=== PATIENT | female | born 1995 | race Caucasian/White ===

== ENCOUNTER → 2022-06-15 16:39 | Outpatient (BNVA) | payer MEDICAID, SELFPAY | PROVIDERS: Family Provider Obstetrics & Gynecology; PCP Obstetrics & Gynecology; Visit Provider Nurse Practitioner Family | DX: E66.01 Morbid (severe) obesity due to excess calories (principal); Z68.43 Body mass index [BMI] 50.0-59.9, adult; F41.9 Anxiety disorder, unspecified; K21.9 Gastro-esophageal reflux disease without esophagitis; E66.9 Obesity, unspecified; R73.9 Hyperglycemia, unspecified; N92.6 Irregular menstruation, unspecified; G47.00 Insomnia, unspecified; Z72.51 High risk heterosexual behavior; Z76.89 Persons encountering health services in other specified circumstances | CPT/HCPCS: 80053; 80061; 83036; 84443; 87806 ==

== ENCOUNTER → 2023-03-10 16:24 | Outpatient (BNVA) | payer MEDICARE, MEDICAID, SELFPAY | PROVIDERS: PCP Nurse Practitioner Family; Visit Provider Nurse Practitioner Family | DX: F41.9 Anxiety disorder, unspecified (principal); F32.A Depression, unspecified; K21.9 Gastro-esophageal reflux disease without esophagitis; E66.01 Morbid (severe) obesity due to excess calories; Z68.43 Body mass index [BMI] 50.0-59.9, adult | CPT/HCPCS: 80053; 80061; 84443 ==

== ENCOUNTER 2023-03-20 16:12 | Emergency (ER) | payer MEDICARE, MEDICAID, SELFPAY ==
[2023-03-20 16:22] VITALS: BP 159/80; PULSE 77; RESP 15; TEMP 36.5; O2SAT 97; BMI 53.2
[2023-03-20 18:13] LABS: Basophils # 0.1 10^3/uL (0.0-0.1); Basophils % 0.8 %; Eosinophils # 0.2 10^3/uL (0.0-0.8); Eosinophils % 1.9 %; Hematocrit 43.6 % (37.0-47.0); Hemoglobin 13.5 g/dL (11.5-15.3); Lymphocytes # 2.3 10^3/uL (0.8-4.8); Lymphocytes % 20.9 %; Mean Corpuscular Hemoglobin 27.2 pg (28.0-34.0); Mean Corpuscular Volume 87.7 fl (81-99); Mean Platelet Volume 9.6 fL (7.4-10.4); Monocytes # 0.5 10^3/uL (0.2-0.9); Monocytes % 4.2 %; Neutrophils # 7.96 10^3/uL (1.8-7.7); Nucleated Red Blood Cells % 0 %; Platelet Count 352 10^3/cmm (130-400); Red Blood Count 4.97 10^6/uL (4.1-5.3); Red Cell Distribution Width 13.6 % (12.1-15.1); White Blood Count 11.1 10^3/uL (4.0-10.0)
--- NOTE | 2023-03-20 18:19 | USR_ITS ---
PROCEDURE INFORMATION: Exam: US Abdomen, Limited; Right Upper Quadrant Exam date and time: 03/20/2023 6:43 PM Age: 28 years old Clinical indication: Nausea and vomiting; Abdominal pain; Acute; Additional info: Ruq pain, vomiting TECHNIQUE: Imaging protocol: Real time ultrasound of the abdomen with image documentation. Limited exam focused on the right upper quadrant. COMPARISON: US OB BPP wo NST [id number] 03/17/2019 4:41 PM FINDINGS: Liver: Normal. No masses. Liver measures 16.3 cm. Portal venous flow appears unremarkable. Gallbladder: Echogenic shadowing stone of 1.7 cm appears lodged within the neck of the gallbladder. A component of echogenic sludge is also seen. Gallbladder wall measures 2.6 mm. No pericholecystic fluid or edema. Biliary ducts: Common bile duct measures 8.8 mm, which is mildly dilated. No intrahepatic ductal dilatation. No echogenic shadowing stone is seen within the visualized common bile duct. Pancreas: Mild pancreatic fullness without focal abnormality. Correlate with serum amylase and lipase otherwise. Right kidney: Normal. No mass. No hydronephrosis. Right kidney measures 12.1 x 4.6 x 4.9 cm. US/US gall bladder [id number] IMPRESSION: 1. Echogenic shadowing gallstone of 1.7 cm appears lodged within the neck of the gallbladder, along with component of echogenic sludge within the gallbladder. No sonographic findings of significant inflammation or cholecystitis is seen. 2. Common bile duct is mildly dilated at 8.8 mm. No intrahepatic ductal dilatation. 3. Mild pancreatic fullness without focal abnormality. This may just represent variation of normal though correlate with serum amylase and lipase.
--- NOTE | 2023-03-20 18:26 | W.ED.ABDPA2 ---
HPI - Abdominal Pain General: Chief Complaint: Abdominal Pain Stated Complaint: abd pain, N/V Time Seen by Provider: 03/20/23 18:09 Source: patient History of Present Illness: 28-year-old female complaining of right upper quadrant pain for the past 3 to 4 days or so. She started vomiting today, and has vomited several times. She has not been able to hold food or liquid down today. No fever. No diarrhea. Vomiting is bilious. History of 2 C-sections. She states that she was admitted in 2019 for cholecystectomy but had a family emergency and had to leave. Evidently, no follow-up since. MD elicited complaint: abdominal pain Pertinent past history: other Onset (ago): day(s) Pain Consistency: constant Location: RUQ Severity: severe Quality: cramping and stabbing Radiation: RUQ Migration to: no migration Exacerbating factors: eating and vomiting Relieving factors: nothing Associated Symptoms: Reports poor appetite and vomiting; Denies coffee ground emesis, fever(s), hematochezia, hematemesis, loose stools and melena Review of Systems Const: Denies: fever(s) ENMT: Denies: throat pain Card: Denies: chest pain or palpitations Resp: Denies: dyspnea, productive cough or non-productive cough GI: Reports: vomiting; Denies: hematemesis, coffee ground emesis, hematochezia or melena : Denies: flank pain or difficulty voiding PFSH ED PFSH: Social History Smoking and tobacco status: current every day smoker Physical Exam Const: COMMON NORMALS: no acute distress GENERAL APPEARANCE: cooperative; not ill appearing and not frail appearing HENMT: COMMON NORMALS: normocephalic, atraumatic and Normal external nose present HEAD & SCALP: normocephalic and atraumatic FACE & SINUS: normal facial exam and face symmetric NOSE: Normal external nose present Eye: COMMON NORMALS: Equal, round and reactive pupils present and EOMs intact bilaterally PUPIL: Yes Equal, round and reactive pupils present Neck/C-Spine: GENERAL: Yes trachea midline Chest: CHEST: Yes Symmetrical chest wall rise Resp: COMMON NORMALS: normal respiratory effort, No retractions, No use of accessory muscles and clear to auscultation bilaterally AUSCULTATION: clear to auscultation bilaterally Cardio: COMMON NORMALS: regular rate and regular rhythm RATE: regular rate RHYTHM: regular rhythm GI: COMMON NORMALS: Normal to inspection, nondistended, normoactive bowel sounds present PALPATION: Yes Tenderness to palpation present (GI) Details: RUQ and Yes Guarding due to palpation present (GI) Extremity: COMMON NORMALS: no pedal edema Neuro: TEGAN COMA SCALE: document GCS findings [place] coma scale eye opening: Spontaneous [place] coma scale verbal response: Orientated [place] coma scale motor response: Obey commands [place] coma scale total score: 15 SENSORY EXAM: Yes extremities (intact) Psych: COMMON NORMALS: speech normal SPEECH: Yes normal speech Skin: COMMON NORMALS: no rashes or lesions noted GENERAL SKIN EXAM: no rashes or lesions noted Course Vital Signs: Vital signs: Vital Signs Temperature 97.7 F 03/20/23 16:22 Pulse Rate 77 03/20/23 16:22 Respiratory Rate 16 03/20/23 20:59 Blood Pressure 110/62 03/20/23 21:30 Pulse Oximetry 100 03/20/23 20:59 Oxygen Delivery Me thod Room Air 03/20/23 20:00 MDM - Abdominal Pain Medical Decision Making Pain relieved with Dilaudid and Toradol. She is afebrile. No vomiting here. White blood cell count is 11. Liver enzymes are completely normal. Her bilirubin is 0.2. Gallbladder ultrasound shows 1.7 cm gallstone in the neck of the gallbladder. There is no significant wall thickening or inflammation or pericholecystic fluid. She has chronic common bile duct dilatation that is mild. No hepatic ductal dilatation. Her lipase is normal. Spoke with surgery. Surgery schedule is quite full for the morning. As she does not have cholecystitis or ascending cholangitis, she will be allowed discharge home on pain medication, antiemetics, and liquid diet. Surgery follow-up this week. Return for worsening symptoms. Lab Data 03/20/23 18:03 03/20/23 18:03 Labs/Radiology: Radiology Impressions Gallbladder Ultrasound 03/20/23 18:19 IMPRESSION: 1. Echogenic shadowing gallstone of 1.7 cm appears lodged within the neck of the gallbladder, along with component of echogenic sludge within the gallbladder. No sonographic findings of significant inflammation or cholecystitis is seen. 2. Common bile duct is mildly dilated at 8.8 mm. No intrahepatic ductal dilatation. 3. Mild pancreatic fullness without focal abnormality. This may just represent variation of normal though correlate with serum amylase and lipase. Laboratory Results WBC 11.1 10^3/uL (4.0-10.0) H 03/20/23 18:03 RBC 4.97 10^6/uL (4.1-5.3) 03/20/23 18:03 Hgb 13.5 g/dL (11.5-15.3) 03/20/23 18:03 Hct 43.6 % (37.0-47.0) 03/20/23 18: MCV 87.7 fl (81-99) 03/20/23 18: MCH 27.2 pg (28.0-34.0) L 03/20/23 18: MCHC 31.0 g/dL (30.0-36.0) 03/20/23 18: RDW 13.6 % (12.1-15.1) 03/20/23 18:03 Plt Count 352 10^3/cmm (130-400) 03/20/23 18:03 MPV 9.6 fL (7.4-10.4) 03/20/23 18:03 Neut % (Auto) 72.0 % 03/20/23 18:03 Lymph % (Auto) 20.9 % 03/20/23 18:03 [place] % (Auto) 4.2 % 03/20/23 18:03 Eos % (Auto) 1.9 % 03/20/23 18:03 Baso % (Auto) 0.8 % 03/20/23 18:03 Neut # (Auto) 7.96 10^3/uL (1.8-7.7) H 03/20/23 18:03 Lymph # (Auto) 2.3 10^3/uL (0.8-4.8) 03/20/23 18:03 [place] # (Auto) 0.5 10^3/uL (0.2-0.9) 03/20/23 18:03 Eos # (Auto) 0.2 10^3/uL (0.0-0.8) 03/20/23 18:03 Baso # (Auto) 0.1 10^3/uL (0.0-0.1) 03/20/23 18:03 Nucleated RBC % (auto) 0 % 03/20/23 18:03 Nucleated RBCs # 0.0 /100WBC 03/20/23 18:03 Sodium 136 mmol/L (136-145) 03/20/23 18:03 Potassium 3.8 mmol/L (3.5-5.1) 03/20/23 18:03 Chloride 103 mmol/L (98-107) 03/20/23 18:03 Carbon Dioxide 28 mmol/L (22-29) 03/20/23 18:03 Anion Gap 8.8 (5-19) 03/20/23 18:03 BUN 12 mg/dL (6-20) 03/20/23 18:03 Creatinine 0.6 mg/dL (0.5-0.9) 03/20/23 18:03 GFR Calculation 119.0 mL/min (90-130) 03/20/23 18:03 Glucose 99 mg/dL (65-115) 03/20/23 18:03 Calculated Osmolality 282 mOsm/kg (285-295) L 03/20/23 18:03 Calcium 8.4 mg/dL (8.5-10.5) L 03/20/23 18:03 Total Bilirubin 0.2 mg/dL (0.15-1.2) 03/20/23 18:03 AST 12 U/L (0-32) 03/20/23 18:03 ALT 12 U/L (0-33) 03/20/23 18:03 Alkaline Phosphatase 82 U/L (35-105) 03/20/23 18:03 Total Protein 6.5 g/dL (6.6-8.7) L 03/20/23 18:03 Albumin 4.0 g/dL (3.5-5.2) 03/20/23 18:03 Globulin 2.5 g/dL (1.3-4.6) 03/20/23 18:03 Lipase 39 U/L (13-60) 03/20/23 18:03 HCG, Qual Negative (Negative) 03/20/23 17:29 Urine Color Yellow (Yellow) 03/20/23 19:13 Urine Appearance Hazy (CLEAR) A 03/20/23 19:13 Urine pH 7 (5-7) 03/20/23 19:13 Ur Specific [place] 1.010 (1.005-1.030) 03/20/23 19:13 Urine Protein Neg (Negative) 03/20/23 19:13 Urine Glucose (UA) Norm (Normal) 03/20/23 19:13 Urine Ketones Negative (Negative) 03/20/23 19:13 Urine Blood Neg (Negative) 03/20/23 19:13 Urine Nitrate Negative (Negative) 03/20/23 19:13 Urine Bilirubin Neg (Negative) 03/20/23 19:13 Urine Urobilinogen 1 mg/dL (Negative) H 03/20/23 19:13 Ur Leukocyte Esterase Trace (Negative) H 03/20/23 19:13 Urine RBC 0-4 /hpf (0-2) H 03/20/23 19:13 Urine WBC 0-4 /hpf (0-5) H 03/20/23 19:13 Ur Squamous Epith Cells 10-15 /hpf (0-5) H 03/20/23 19:13 Amorphous Sediment 1+ /hpf 03/20/23 19:13 Urine Bacteria 2+ /hpf (NONE) H 03/20/23 19:13 Discharge Plan Discharge Patient Disposition: Home Clinical Impression: Biliary colic Condition: Stable Prescriptions: New Percocet 7.5-325 mg tablet 1 tab PO Q6H PRN (Reason: pain) Qty: 10 0RF ondansetron 4 mg film 4 mg PO Q8H PRN (Reason: nausea and vomiting) Qty: 10 0RF No Action buspirone 10 mg tablet 10 mg PO TID 30 Days Qty: 90 1RF fluoxetine 40 mg capsule 40 mg PO DAILY 30 Days Qty: 30 3RF pantoprazole [Protonix] 40 mg tablet,delayed release (DR/EC) 40 mg PO DAILY 30 Days Qty: 30 4RF prazosin 2 mg capsule 2 mg PO DAILY 30 Days Qty: 30 3RF levocetirizine [Xyzal] 5 mg tablet 5 mg PO DAILY 90 Days Qty: 90 1RF Discharge Orders: Discharge ED (Routine); Ordered 03/20/23 Ordered By: Davon Tlaamantes Referrals: Carmelo Francois DO [Physician] - 4-7 days Teagan Sahu NP [Primary Care Provider] - Patient Instructions: Biliary Colic (ED), Abdominal Pain (ED), Opioid Safety, Pain Management Activity Restrictions/Additional Instructions: Return for fever greater than 100, vomiting liquids or medications despite treatment, worsening pain despite treatment, other concerning symptoms. Case management will call you tomorrow regarding a surgery appointment. Coding Level of Care Code ED Disbursing Officer for Holli Martínez
[2023-03-20 18:27] LABS: Alanine Aminotransferase 12 U/L (0-33); Alkaline Phosphatase 82 U/L (35-105); Anion Gap 8.8 (5-19); Aspartate Amino Transferase 12 U/L (0-32); Blood Urea Nitrogen 12 mg/dL (6-20); Calcium 8.4 mg/dL (8.5-10.5); Carbon Dioxide 28 mmol/L (22-29); Chloride 103 mmol/L (98-107); Globulin 2.5 g/dL (1.3-4.6); Glucose 99 mg/dL (65-115); Lipase 39 U/L (13-60); Osmolality Calculated 282 mOsm/kg (285-295); Potassium 3.8 mmol/L (3.5-5.1); Sodium 136 mmol/L (136-145); Total Bilirubin 0.2 mg/dL (0.15-1.2); Total Protein 6.5 g/dL (6.6-8.7)
[2023-03-20 18:33] VITALS: RESP 16; O2SAT 99
[2023-03-20] MEDS: HYDROmorphone 1 mg/mL INJ 1 mL IVP ×2 (18:33→20:59)
[2023-03-20] MEDS: sodium chloride 0.9% 1,000 ML 999 ML IV (18:34)
[2023-03-20] MEDS: ketorolac 30 mg/mL INJ IVP (18:34)
[2023-03-20] MEDS: ondansetron 2 mg/ML SDV 2 mL 4 MG IVP ×2 (18:34→21:49)
[2023-03-20 18:59] VITALS: BP 132/60
[2023-03-20 19:09] LABS: HCG, Serum Qual Negative (Negative)
[2023-03-20 19:25] LABS: HCG Qualitative Urine. Negative (Negative)
[2023-03-20 19:29] LABS: Urine Color Yellow (Yellow); pH Urine 7 (5-7)
[2023-03-20 19:30] LABS: Add Urine Microscopic? YES; Bilirubin Urine Neg (Negative); Blood Urine Neg (Negative); Glucose Urine UA Norm (Normal); Ketones Urine Negative (Negative); Leukocyte Esterase Urine Trace (Negative); Nitrate Urine Negative (Negative); Protein Urine Neg (Negative); Urine Appearance Hazy (CLEAR); Urobilinogen Urine 1 mg/dL (Negative)
[2023-03-20 19:31] LABS: Bacteria Urine 2+ /hpf; RBC Urine 0-4 /hpf (0-2); WBC Urine 0-4 /hpf (0-5)
[2023-03-20 19:32] LABS: Amorphous Sediment Urine 1+ /hpf
[2023-03-20 20:00] VITALS: BP 119/51; O2SAT 93
[2023-03-20 20:59] VITALS: RESP 16; O2SAT 100
[2023-03-20 21:30] VITALS: BP 110/62
--- NOTE | 2023-03-21 10:03 | DCPLANNER ---
Addendum entered by Heidy Kelley 04/07/23 07:33: Patient had a follow up appointment scheduled with [facility] - patient did attend appointment Addendum entered by Heidy Kelley 03/22/23 15:20: Patient has a follow up appointment scheduled for Wednesday, April 05, 2023 at 1:[address] Francois at general surgery. Original Note: [employer] had message to schedule a follow up appointment for patient with general surgery. [employer] sent patients information to the front office staff at general surgery. Patients information will be printed and reviewed. Clinic will call patient with appointment information.
== END 2023-03-20 22:01 | disposition home or self-care (01) ==
PROVIDERS: Physician Assistant; Emergency Provider Emergency Medicine; PCP Nurse Practitioner Family
DX: K80.20 Calculus of gallbladder without cholecystitis without obstruction (principal); K83.9 Disease of biliary tract, unspecified; F17.200 Nicotine dependence, unspecified, uncomplicated; Z90.49 Acquired absence of other specified parts of digestive tract
CPT/HCPCS: 76705; 80053; 81001; 81025; 83690; 84703; 85025; 96361; 96374; 96375; 96376; 99284; J1170; J1885; J2405; J7030

== ENCOUNTER 2023-03-21 22:22 | Emergency (ER) | payer MEDICARE, MEDICAID, SELFPAY ==
[2023-03-21 22:23] VITALS: BMI 42.2
[2023-03-21 22:28] VITALS: BP 122/73; PULSE 66; RESP 16; TEMP 37.2; O2SAT 97
--- NOTE | 2023-03-21 22:46 | W.ED.ABDPA2 ---
HPI - Abdominal Pain General: Chief Complaint: Abdominal Pain Stated Complaint: abd pain Time Seen by Provider: 03/21/23 22:25 Source: patient and EMS Mode of arrival: EMS Limitations: no limitations History of Present Illness: 28-year-old female who states been having right upper quadrant abdominal pain over the last 2 days she was seen here yesterday diagnosed with gallstones and biliary colic was placed on pain and nausea medicine states she has a follow-up appointment surgery on the but had worsening pain tonight states pain was a 7 out of 10 she denies any fever denies any worsening proving factors. Associated Symptoms: Reports nausea; Denies chills, diarrhea, dysuria, fever(s) and vomiting Related Data: Date of Last Menstrual Period: 03/12/23 Review of Systems Const: Denies: fever(s), chills, body aches or change in appetite ENMT: Denies: throat pain or dental pain Card: Denies: chest pain Resp: Denies: dyspnea GI: Reports: abdominal pain and nausea; Denies: vomiting or diarrhea : Denies: dysuria Musc: Denies: neck pain or back pain Skin/Breast: Denies: rash Neuro: Denies: headache(s) PFSH ED PFSH: Social History Smoking and tobacco status: current every day smoker Female Reproductive History: Date of last menstrual period: 03/12/23 Physical Exam Const: COMMON NORMALS: no acute distress, patient oriented x3 and healthy appearing HENMT: COMMON NORMALS: normocephalic and atraumatic HEAD & SCALP: normocephalic and atraumatic Eye: COMMON NORMALS: conjunctivae normal CONJUNCTIVA: Yes conjunctivae normal Neck/C-Spine: COMMON NORMALS: full ROM and supple Chest: COMMONS NORMALS: normal inspection of the chest and normal palpation of entire chest wall Resp: COMMON NORMALS: normal respiratory effort, No retractions, No use of accessory muscles and clear to auscultation bilaterally AUSCULTATION: clear to auscultation bilaterally Cardio: COMMON NORMALS: regular rate, regular rhythm and No murmurs present (Cardio) RATE: regular rate RHYTHM: regular rhythm GI: COMMON NORMALS: Normal to inspection, nondistended, normoactive bowel sounds present, Soft to palpation, non-tender and no masses PALPATION: Yes Soft to palpation Extremity: COMMON NORMALS: normal to inspection and full ROM Neuro: COMMON NORMALS: patient oriented x3, moves all extremities and no focal motor deficits Psych: COMMON NORMALS: mental status grossly normal, Normal thought process present and cooperative THOUGHT PROCESS: Normal thought process present Skin: COMMON NORMALS: no rashes or lesions noted and no wounds GENERAL SKIN EXAM: no rashes or lesions noted Course Vital Signs: Vital signs: Vital Signs Temperature 98.9 F 03/21/23 22:28 Pulse Rate 66 03/21/23 22:28 Respiratory Rate 18 03/21/23 22:54 Blood Pressure 122/73 03/21/23 22:28 Pulse Oximetry 97 03/21/23 22:28 Oxygen Delivery Me thod Room Air 03/21/23 22:28 MDM - Abdominal Pain Medical Decision Making Patient presents for abdominal pains likely biliary colic blood work here is normal she has no signs of acute cholecystitis she did not scrap picker her pain medicine I informed her she needs to scrap picker her prescription for pain meds she is to follow-up with surgery as scheduled in 2 weeks and return if worsening she understands agrees to plan. Medical Records I reviewed the patient's medical records. Lab Data I reviewed the patient's lab results. 03/21/23 23:40 03/21/23 23:40 Labs/Radiology: Laboratory Results WBC 11.4 10^3/uL (4.0-10.0) H 03/21/23 23:40 RBC 4.52 10^6/uL (4.1-5.3) 03/21/23 23:40 Hgb 12.4 g/dL (11.5-15.3) 03/21/23 23:40 Hct 39.6 % (37.0-47.0) 03/21/23 23:40 MCV 87.6 fl (81-99) 03/21/23 23:40 MCH 27.4 pg (28.0-34.0) L 03/21/23 23:40 MCHC 31.3 g/dL (30.0-36.0) 03/21/23 23:40 RDW 13.6 % (12.1-15.1) 03/21/23 23:40 Plt Count 313 10^3/cmm (130-400) 03/21/23 23:40 MPV 9.7 fL (7.4-10.4) 03/21/23 23:40 Neut % (Auto) 60.5 % 03/21/23 23:40 Lymph % (Auto) 31.4 % 03/21/23 23:40 [place] % (Auto) 4.5 % 03/21/23 23:40 Eos % (Auto) 2.4 % 03/21/23 23:40 Baso % (Auto) 1.0 % 03/21/23 23:40 Neut # (Auto) 6.92 10^3/uL (1.8-7.7) 03/21/23 23:40 Lymph # (Auto) 3.6 10^3/uL (0.8-4.8) 03/21/23 23:40 [place] # (Auto) 0.5 10^3/uL (0.2-0.9) 03/21/23 23:40 Eos # (Auto) 0.3 10^3/uL (0.0-0.8) 03/21/23 23:40 Baso # (Auto) 0.1 10^3/uL (0.0-0.1) 03/21/23 23:40 Nucleated RBC % (auto) 0 % 03/21/23 23:40 Nucleated RBCs # 0.0 /100WBC 03/21/23 23:40 Sodium 139 mmol/L (136-145) 03/21/23 23:40 Potassium 3.8 mmol/L (3.5-5.1) 03/21/23 23:40 Chloride 107 mmol/L (98-107) 03/21/23 23:40 Carbon Dioxide 25 mmol/L (22-29) 03/21/23 23:40 Anion Gap 10.8 (5-19) 03/21/23 23:40 BUN 12 mg/dL (6-20) 03/21/23 23:40 Creatinine 0.7 mg/dL (0.5-0.9) 03/21/23 23:40 GFR Calculation 99.6 mL/min (90-130) 03/21/23 23:40 Glucose 76 mg/dL (65-115) 03/21/23 23:40 Calculated Osmolality 287 mOsm/kg (285-295) 03/21/23 23:40 Calcium 8.5 mg/dL (8.5-10.5) 03/21/23 23:40 Total Bilirubin 0.2 mg/dL (0.15-1.2) 03/21/23 23:40 AST 12 U/L (0-32) 03/21/23 23:40 ALT 12 U/L (0-33) 03/21/23 23:40 Alkaline Phosphatase 70 U/L (35-105) 03/21/23 23:40 Total Protein 6.0 g/dL (6.6-8.7) L 03/21/23 23:40 Albumin 3.4 g/dL (3.5-5.2) L 03/21/23 23:40 Globulin 2.6 g/dL (1.3-4.6) 03/21/23 23:40 Lipase 35 U/L (13-60) 03/21/23 23:40 HCG, Qual Negative (Negative) 03/21/23 23:40 Discharge Plan Discharge Patient Disposition: Home Clinical Impression: Biliary colic Condition: Stable Prescriptions: No Action buspirone 10 mg tablet 10 mg PO TID 30 Days Qty: 90 1RF fluoxetine 40 mg capsule 40 mg PO DAILY 30 Days Qty: 30 3RF pantoprazole [Protonix] 40 mg tablet,delayed release (DR/EC) 40 mg PO DAILY 30 Days Qty: 30 4RF prazosin 2 mg capsule 2 mg PO DAILY 30 Days Qty: 30 3RF levocetirizine [Xyzal] 5 mg tablet 5 mg PO DAILY 90 Days Qty: 90 1RF Percocet 7.5-325 mg tablet 1 tab PO Q6H PRN (Reason: pain) Qty: 10 0RF ondansetron 4 mg film 4 mg PO Q8H PRN (Reason: nausea and vomiting) Qty: 10 0RF Discharge Orders: Discharge ED (Routine); Ordered 03/22/23 Ordered By: Imer Dai Referrals: Teagan Sahu NP [Primary Care Provider] - Discharge Diet: Advance as tolerated Discharge Activity: Resume usual activity Patient Instructions: Abdominal Pain (ED) Coding Level of Care Code ED [employer] Machine Operator for Holli Martínez
[2023-03-21 22:54] VITALS: RESP 18
[2023-03-21] MEDS: HYDROmorphone 1 mg/mL INJ 1 mL IVP (22:54)
[2023-03-21] MEDS: ondansetron 2 mg/ML SDV 2 mL 4 MG IVP (22:54)
[2023-03-21 23:48] LABS: Basophils # 0.1 10^3/uL (0.0-0.1); Eosinophils # 0.3 10^3/uL (0.0-0.8); Eosinophils % 2.4 %; Hematocrit 39.6 % (37.0-47.0); Hemoglobin 12.4 g/dL (11.5-15.3); Lymphocytes # 3.6 10^3/uL (0.8-4.8); Lymphocytes % 31.4 %; Mean Corpuscular HGB Conc 31.3 g/dL (30.0-36.0); Mean Corpuscular Hemoglobin 27.4 pg (28.0-34.0); Mean Corpuscular Volume 87.6 fl (81-99); Mean Platelet Volume 9.7 fL (7.4-10.4); Monocytes # 0.5 10^3/uL (0.2-0.9); Monocytes % 4.5 %; Neutrophils # 6.92 10^3/uL (1.8-7.7); Neutrophils % 60.5 %; Nucleated Red Blood Cells % 0 %; Platelet Count 313 10^3/cmm (130-400); Red Blood Count 4.52 10^6/uL (4.1-5.3); Red Cell Distribution Width 13.6 % (12.1-15.1); White Blood Count 11.4 10^3/uL (4.0-10.0)
[2023-03-22 00:07] LABS: Alanine Aminotransferase 12 U/L (0-33); Albumin Level 3.4 g/dL (3.5-5.2); Alkaline Phosphatase 70 U/L (35-105); Anion Gap 10.8 (5-19); Aspartate Amino Transferase 12 U/L (0-32); Blood Urea Nitrogen 12 mg/dL (6-20); Calcium 8.5 mg/dL (8.5-10.5); Carbon Dioxide 25 mmol/L (22-29); Chloride 107 mmol/L (98-107); Globulin 2.6 g/dL (1.3-4.6); Glomerular Filtration Rate 99.6 mL/min (90-130); Glucose 76 mg/dL (65-115); Lipase 35 U/L (13-60); Osmolality Calculated 287 mOsm/kg (285-295); Potassium 3.8 mmol/L (3.5-5.1); Sodium 139 mmol/L (136-145); Total Bilirubin 0.2 mg/dL (0.15-1.2)
[2023-03-22 00:18] LABS: HCG, Serum Qual Negative (Negative)
[2023-03-22] MEDS: HYDROcodone-acetaminophen 5-325 mg Tablet 2 TAB PO (00:22)
== END 2023-03-22 00:31 | disposition home or self-care (01) ==
PROVIDERS: Emergency Provider Emergency Medicine; PCP Nurse Practitioner Family
DX: K80.20 Calculus of gallbladder without cholecystitis without obstruction (principal)
CPT/HCPCS: 80053; 83690; 84703; 85025; 96374; 96375; 99284; J1170; J2405

== ENCOUNTER 2023-03-26 18:57 | Emergency (ER) | payer MEDICARE, MEDICAID, SELFPAY ==
[2023-03-26 18:59] VITALS: BP 142/69; PULSE 81; RESP 18; TEMP 36.6; O2SAT 97; BMI 53.2
[2023-03-26] MEDS: morphine 4 mg/mL SDV 1 mL IVP (19:47)
[2023-03-26] MEDS: ondansetron 2 mg/ML SDV 2 mL 4 MG IM (19:47)
[2023-03-26 20:04] LABS: Basophils # 0.1 10^3/uL (0.0-0.1); Basophils % 0.4 %; Eosinophils # 0.2 10^3/uL (0.0-0.8); Eosinophils % 1.8 %; Hematocrit 39.8 % (37.0-47.0); Hemoglobin 12.4 g/dL (11.5-15.3); Lymphocytes # 3.2 10^3/uL (0.8-4.8); Mean Corpuscular HGB Conc 31.2 g/dL (30.0-36.0); Mean Corpuscular Hemoglobin 27.1 pg (28.0-34.0); Mean Corpuscular Volume 87.1 fl (81-99); Mean Platelet Volume 9.9 fL (7.4-10.4); Monocytes # 0.5 10^3/uL (0.2-0.9); Monocytes % 4.3 %; Neutrophils # 8.62 10^3/uL (1.8-7.7); Neutrophils % 68.3 %; Nucleated Red Blood Cells % 0 %; Platelet Count 308 10^3/cmm (130-400); Red Blood Count 4.57 10^6/uL (4.1-5.3); White Blood Count 12.6 10^3/uL (4.0-10.0)
[2023-03-26 20:33] LABS: Alanine Aminotransferase 15 U/L (0-33); Albumin Level 3.6 g/dL (3.5-5.2); Alkaline Phosphatase 75 U/L (35-105); Anion Gap 11.1 (5-19); Aspartate Amino Transferase 13 U/L (0-32); Blood Urea Nitrogen 9 mg/dL (6-20); Calcium 8.2 mg/dL (8.5-10.5); Carbon Dioxide 24 mmol/L (22-29); Chloride 109 mmol/L (98-107); Globulin 2.5 g/dL (1.3-4.6); Glomerular Filtration Rate 99.6 mL/min (90-130); Glucose 98 mg/dL (65-115); Lipase 29 U/L (13-60); Osmolality Calculated 289 mOsm/kg (285-295); Potassium 4.1 mmol/L (3.5-5.1); Sodium 140 mmol/L (136-145); Total Bilirubin 0.2 mg/dL (0.15-1.2); Total Protein 6.1 g/dL (6.6-8.7)
--- NOTE | 2023-03-26 20:47 | ED_ITS ---
HPI - Abdominal Pain General: Chief Complaint: Abdominal Pain Stated Complaint: abd pain, gallstones Time Seen by Provider: 03/26/23 19:02 History of Present Illness: 28-year-old obese patient with multiple ER visit due to right upper quadrant and gallbladder disorder presents emergency room now with acute exacerbation of her pain. Describes pain as sharp sensation with severity of 8 out of 10. Patient with some nausea and vomiting prior to come to emergency room. Has any black stool, bloody stool, fever or chills. Onset (ago): day(s) (2) Pain Consistency: constant Location: Epigastric and RUQ Severity: severe Pain scale (0-10): 8 Radiation: none Migration to: no migration Relieving factors: nothing Associated Symptoms: Reports nausea and vomiting; Denies chills, coffee ground emesis, constipation, diarrhea, fever(s), heartburn and hematemesis Review of Systems General: Reports: 10 or more systems reviewed and unremarkable except in HPI and below Const: Denies: fever(s), chills, body aches or change in appetite GI: Reports: abdominal pain, nausea and vomiting; Denies: hematemesis, coffee ground emesis, dysphagia, heartburn, early satiety, diarrhea or constipation PFSH ED PFSH: Social History Smoking and tobacco status: current every day smoker Physical Exam Const: COMMON NORMALS: no acute distress and patient oriented x3 Neck/C-Spine: COMMON NORMALS: full ROM, no lymphadenopathy, supple, no meningeal signs, no JVD, Thyroid normal and No carotid bruits THYROID: Thyroid normal Chest: COMMONS NORMALS: normal inspection of the chest Resp: COMMON NORMALS: normal respiratory effort, No retractions, No use of accessory muscles, clear to auscultation bilaterally and percussion normal AUSCULTATION: clear to auscultation bilaterally PERCUSSION: percussion normal Cardio: COMMON NORMALS: no JVD GI: COMMON NORMALS: Soft to palpation INSPECTION: Yes normal to inspection (Pain with the palpation of right upper quadrant and epigastric area no guar), No incision, No caput medusae present and No Fluid wave present AUSCULTATION: Yes normoactive bowel sounds PALPATION: Yes Soft to palpation PERCUSSION: no fluid wave Neuro: COMMON NORMALS: patient oriented x3 MENINGEAL SIGNS: Yes no meningeal signs Skin: COMMON NORMALS: no rashes or lesions noted, no wounds, turgor normal, no jaundice, no petechiae and no mottling GENERAL SKIN EXAM: no rashes or lesions noted and turgor normal Course Reevaluation(s): Reevaluation #1: Upon assessment patient appeared to be comfortable in no acute distress. Vital Signs: Vital signs: Vital Signs Temperature 98 F 03/26/23 18:59 Pulse Rate 81 03/26/23 18:59 Respiratory Rate 18 03/26/23 18:59 Blood Pressure 142/69 03/26/23 18:59 Pulse Oximetry 97 03/26/23 18:59 MDM - Abdominal Pain Medical Decision Making Patient was made comfortable emergency room. I reviewed prior ultrasound and CT scan and ER notes. Scheduled for gallbladder surgery next few weeks. Labs was done. Was given IV fluid and IV pain medication. Chest pain patient appears to be comfortable without any acute distress. Will be discharged home with oral antibiotics and pain medication. Differential Diagnosis Likely abdominal pain, acute appendicitis, calculus of kidney, constipation, diverticulitis, endometriosis, gastroenteritis, pancreatitis and small bowel obstruction Lab Data 03/26/23 19:50 03/26/23 19:50 Labs/Radiology: Laboratory Results WBC 12.6 10^3/uL (4.0-10.0) H 03/26/23 19:50 RBC 4.57 10^6/uL (4.1-5.3) 03/26/23 19:50 Hgb 12.4 g/dL (11.5-15.3) 03/26/23 19:50 Hct 39.8 % (37.0-47.0) 03/26/23 19:50 MCV 87.1 fl (81-99) 03/26/23 19:50 MCH 27.1 pg (28.0-34.0) L 03/26/23 19:50 MCHC 31.2 g/dL (30.0-36.0) 03/26/23 19:50 RDW 14.0 % (12.1-15.1) 03/26/23 19:50 Plt Count 308 10^3/cmm (130-400) 03/26/23 19:50 MPV 9.9 fL (7.4-10.4) 03/26/23 19:50 Neut % (Auto) 68.3 % 03/26/23 19:50 Lymph % (Auto) 25.0 % 03/26/23 19:50 [place] % (Auto) 4.3 % 03/26/23 19:50 Eos % (Auto) 1.8 % 03/26/23 19:50 Baso % (Auto) 0.4 % 03/26/23 19:50 Neut # (Auto) 8.62 10^3/uL (1.8-7.7) H 03/26/23 19:50 Lymph # (Auto) 3.2 10^3/uL (0.8-4.8) 03/26/23 19:50 [place] # (Auto) 0.5 10^3/uL (0.2-0.9) 03/26/23 19:50 Eos # (Auto) 0.2 10^3/uL (0.0-0.8) 03/26/23 19:50 Baso # (Auto) 0.1 10^3/uL (0.0-0.1) 03/26/23 19:50 Nucleated RBC % (auto) 0 % 03/26/23 19:50 Nucleated RBCs # 0.0 /100WBC 03/26/23 19:50 Sodium 140 mmol/L (136-145) 03/26/23 19:50 Potassium 4.1 mmol/L (3.5-5.1) 03/26/23 19:50 Chloride 109 mmol/L (98-107) H 03/26/23 19:50 Carbon Dioxide 24 mmol/L (22-29) 03/26/23 19:50 Anion Gap 11.1 (5-19) 03/26/23 19:50 BUN 9 mg/dL (6-20) 03/26/23 19:50 Creatinine 0.7 mg/dL (0.5-0.9) 03/26/23 19:50 GFR Calculation 99.6 mL/min (90-130) 03/26/23 19:50 Glucose 98 mg/dL (65-115) 03/26/23 19:50 Calculated Osmolality 289 mOsm/kg (285-295) 03/26/23 19:50 Calcium 8.2 mg/dL (8.5-10.5) L 03/26/23 19:50 Total Bilirubin 0.2 mg/dL (0.15-1.2) 03/26/23 19:50 AST 13 U/L (0-32) 03/26/23 19:50 ALT 15 U/L (0-33) 03/26/23 19:50 Alkaline Phosphatase 75 U/L (35-105) 03/26/23 19:50 Total Protein 6.1 g/dL (6.6-8.7) L 03/26/23 19:50 Albumin 3.6 g/dL (3.5-5.2) 03/26/23 19:50 Globulin 2.5 g/dL (1.3-4.6) 03/26/23 19:50 Lipase 29 U/L (13-60) 03/26/23 19:50 Discharge Plan Discharge Patient Disposition: Home Clinical Impression: Biliary colic, Abdominal pain Condition: Stable Prescriptions: New Augmentin 875 mg PO BID Qty: 10 0RF Percocet 5-325 mg tablet 1 tab PO Q8H PRN (Reason: pain) Qty: 14 0RF No Action buspirone 10 mg tablet 10 mg PO TID 30 Days Qty: 90 1RF fluoxetine 40 mg capsule 40 mg PO DAILY 30 Days Qty: 30 3RF pantoprazole [Protonix] 40 mg tablet,delayed release (DR/EC) 40 mg PO DAILY 30 Days Qty: 30 4RF prazosin 2 mg capsule 2 mg PO DAILY 30 Days Qty: 30 3RF levocetirizine [Xyzal] 5 mg tablet 5 mg PO DAILY 90 Days Qty: 90 1RF Percocet 7.5-325 mg tablet 1 tab PO Q6H PRN (Reason: pain) Qty: 10 0RF ondansetron 4 mg film 4 mg PO Q8H PRN (Reason: nausea and vomiting) Qty: 10 0RF Discharge Orders: Discharge ED (Routine); Ordered 03/26/23 Ordered By: Tiffanie Krishnan Referrals: Carmelo Francois DO [Physician] - Teagan Sahu NP [Primary Care Provider] - Discharge Diet: Advance as tolerated Discharge Activity: Resume usual activity Patient Instructions: Abdominal Pain (ED), Opioid Safety, Pain Management Coding Level of Care Code ED Assistant Sales Center Manager for Chg Mauricio
== END 2023-03-26 21:01 | disposition home or self-care (01) ==
PROVIDERS: Emergency Provider Family Medicine; PCP Nurse Practitioner Family
DX: K80.50 Calculus of bile duct without cholangitis or cholecystitis without obstruction (principal); F17.210 Nicotine dependence, cigarettes, uncomplicated
CPT/HCPCS: 80053; 83690; 85025; 96372; 96374; 99284; J2270; J2405

== ENCOUNTER → 2023-04-05 13:45 | Outpatient (BNVA) | payer MEDICARE, MEDICAID, SELFPAY | PROVIDERS: PCP Nurse Practitioner Family; Visit Provider Surgery | DX: K80.20 Calculus of gallbladder without cholecystitis without obstruction (principal); K21.9 Gastro-esophageal reflux disease without esophagitis; K92.0 Hematemesis | CPT/HCPCS: 99204 ==

== ENCOUNTER 2023-04-07 03:01 | Emergency (ER) | payer MEDICARE, MEDICAID, SELFPAY ==
[2023-04-07 03:02] VITALS: BP 153/63; PULSE 66; RESP 16; TEMP 36.8; O2SAT 99; BMI 53.2
--- NOTE | 2023-04-07 03:03 | ED_ITS ---
HPI - Abdominal Pain General: Chief Complaint: Abdominal Pain Stated Complaint: ABD pain Time Seen by Provider: 04/07/23 03:03 History of Present Illness: Ms. Hartley is a 28-year-old lady with history of GERD, biliary colic, smoking, obesity presenting to the emergency department for evaluation of abdominal pain. She has had intermittent symptoms in the past however reports worse symptoms over the past few days. Right upper quadrant and stabbing twisting sharp in nature. Worse with eating. She has not had pain medication or antinausea medication at home. She was seen 2 days ago by general surgery and has plan for outpatient cholecystectomy and EGD. She does note change in stools and coffee- ground emesis which she says is new however this was previously noted in surgery notes. No other specific changes in health, exacerbating, or alleviating factors identified. Onset (ago): day(s) Pain Consistency: constant Location: Epigastric and RUQ Severity: severe Quality: stabbing, aching and other Radiation: back Exacerbating factors: eating and movement Associated Symptoms: Reports diarrhea, nausea, poor appetite and vomiting Review of Systems General: Reports: 10 or more systems reviewed and unremarkable except in HPI and below GI: Reports: nausea, vomiting and diarrhea PFSH ED PFSH: Medical History (Updated 04/15/23 @ 00:02 by NEVA Banks) Chronic GERD Symptomatic cholelithiasis Surgical History (Updated 04/07/23 @ 05:21 by Willem Xiong MD) History of tonsillectomy and adenoidectomy 04/26/12 Hx of section 04/201905/13/20 Family History Mother Cancer ovarian Heart attack Diabetes Father Diabetes COPD (chronic obstructive pulmonary disease) Cancer lung cancer Heart disease Grandmother Diabetes Gout Spastic colon Heart disease Cancer unknown what kind High cholesterol Mother Diabetes Pancreas (digestive gland) works poorly High cholesterol Social History Smoking and tobacco status: current every day smoker Physical Exam Const: COMMON NORMALS: alert GENERAL APPEARANCE: cooperative and well deve loped HENMT: COMMON NORMALS: normocephalic and atraumatic HEAD & SCALP: normocephalic and atraumatic Eye: COMMON NORMALS: conjunctivae normal CONJUNCTIVA: Yes conjunctivae normal SCLERA: sclerae normal Neck/C-Spine: COMMON NORMALS: supple GENERAL: Yes trachea midline Resp: COMMON NORMALS: normal respiratory effort EFFORT & INSPECTION: Yes able to speak in complete sentences Cardio: COMMON NORMALS: regular rate and regular rhythm RATE: regular rate RHYTHM: regular rhythm GI: COMMON NORMALS: Soft to palpation PALPATION: Yes Soft to palpation, Yes Tenderness to palpation present (GI) Details: RUQ and No Rigid due to palpation Extremity: GENERAL: Yes normal exam except as noted and No edema Neuro: COMMON NORMALS: moves all extremities SENSORIUM/ORIENTATION: Yes alert and No Orientation impaired Psych: COMMON NORMALS: mental status grossly normal and Normal thought process present THOUGHT PROCESS: Normal thought process present Course Vital Signs: Vital signs: Vital Signs Temperature 98.3 F 04/07/23 05:39 Pulse Rate 50 L 04/07/23 05:39 Respiratory Rate 16 04/07/23 05:39 Blood Pressure 119/48 04/07/23 05:39 Pulse Oximetry 97 04/07/23 05:39 MDM - Abdominal Pain Medical Decision Making 28-year-old lady with known history of biliary colic and chronic GERD presenting to the emergency department for evaluation of abdominal pain. Exam as above. Patient is nontoxic. There is abdominal tenderness and voluntary guarding without evidence of acute surgical abdomen. Labs notable for mild leukocytosis, hemoglobin similar to prior, normal platelet count. Metabolic panel without significant derangement. Normal bilirubin, transaminases, and lipase. hCG negative from 03/21/2023. Given more persistent symptoms and change in characteristic repeat imaging is appropriate. Gallbladder ultrasound ordered. Gallbladder ultrasound without definite evidence of cholecystitis. Patient symptoms improved with ED treatment. The results of ED evaluation were discussed with the patient including prescriptions and/or symptomatic cares (if applicable) including appropriate and responsible use, followup plan, and return precautions. The patient verbalized understanding and felt safe for discharge. Medical Records I reviewed the patient's medical records. Lab Data I reviewed the patient's lab results. 04/07/23 03:00 04/07/23 03:00 Labs/Radiology: Radiology Impressions Gallbladder Ultrasound 04/07/23 03:37 IMPRESSION: Contracted gallbladder with cholelithiasis and ductal dilatation. Findings are suggestive of gallbladder disease. Laboratory Results WBC 11.0 10^3/uL (4.0-10.0) H 04/07/23 03:00 RBC 4.66 10^6/uL (4.1-5.3) 04/07/23 03:00 Hgb 12.8 g/dL (11.5-15.3) 04/07/23 03:00 Hct 40.4 % (37.0-47.0) 04/07/23 03:00 MCV 86.7 fl (81-99) 04/07/23 03:00 MCH 27.5 pg (28.0-34.0) L 04/07/23 03:00 MCHC 31.7 g/dL (30.0-36.0) 04/07/23 03:00 RDW 13.7 % (12.1-15.1) 04/07/23 03:00 Plt Count 323 10^3/cmm (130-400) 04/07/23 03:00 MPV 9.9 fL (7.4-10.4) 04/07/23 03:00 Neut % (Auto) 57.4 % 04/07/23 03:00 Lymph % (Auto) 33.1 % 04/07/23 03:00 [place] % (Auto) 6.1 % 04/07/23 03:00 Eos % (Auto) 2.6 % 04/07/23 03:00 Baso % (Auto) 0.6 % 04/07/23 03:00 Neut # (Auto) 6.32 10^3/uL (1.8-7.7) 04/07/23 03:00 Lymph # (Auto) 3.6 10^3/uL (0.8-4.8) 04/07/23 03:00 [place] # (Auto) 0.7 10^3/uL (0.2-0.9) 04/07/23 03:00 Eos # (Auto) 0.3 10^3/uL (0.0-0.8) 04/07/23 03:00 Baso # (Auto) 0.1 10^3/uL (0.0-0.1) 04/07/23 03:00 Nucleated RBC % (auto) 0 % 04/07/23 03:00 Nucleated RBCs # 0.0 /100WBC 04/07/23 03:00 Sodium 138 mmol/L (136-145) 04/07/23 03:00 Potassium 3.9 mmol/L (3.5-5.1) 04/07/23 03:00 Chloride 105 mmol/L (98-107) 04/07/23 03:00 Carbon Dioxide 25 mmol/L (22-29) 04/07/23 03:00 Anion Gap 11.9 (5-19) 04/07/23 03:00 BUN 18 mg/dL (6-20) 04/07/23 03:00 Creatinine 0.9 mg/dL (0.5-0.9) 04/07/23 03:00 GFR Calculation 74.6 mL/min (90-130) L 04/07/23 03:00 Glucose 103 mg/dL (65-115) 04/07/23 03:00 Calculated Osmolality 288 mOsm/kg (285-295) 04/07/23 03:00 Calcium 9.0 mg/dL (8.5-10.5) 04/07/23 03:00 Total Bilirubin 0.2 mg/dL (0.15-1.2) 04/07/23 03:00 AST 16 U/L (0-32) 04/07/23 03:00 ALT 19 U/L (0-33) 04/07/23 03:00 Alkaline Phosphatase 67 U/L (35-105) 04/07/23 03:00 Total Protein 6.2 g/dL (6.6-8.7) L 04/07/23 03:00 Albumin 4.0 g/dL (3.5-5.2) 04/07/23 03:00 Globulin 2.2 g/dL (1.3-4.6) 04/07/23 03:00 Lipase 47 U/L (13-60) 04/07/23 03:00 Discharge Plan Discharge Patient Disposition: Home Clinical Impression: Abdominal pain, Chronic GERD, Gastritis, Biliary colic Condition: Stable Prescriptions: New ondansetron 4 mg tablet,disintegrating 4 mg PO Q8H PRN (Reason: nausea and vomiting) Qty: 15 0RF oxycodone 5 mg tablet 5 mg PO Q4H PRN (Reason: pain) Qty: 10 0RF Carafate 1 gram tablet 1 g PO TID 28 Days Qty: 84 0RF No Action pantoprazole [Protonix] 40 mg tablet,delayed release (DR/EC) 40 mg PO BID 42 Days Qty: 84 1RF buspirone 10 mg tablet 10 mg PO TID 30 Days Qty: 90 1RF fluoxetine 40 mg capsule 40 mg PO DAILY 30 Days Qty: 30 3RF prazosin 2 mg capsule 2 mg PO DAILY 30 Days Qty: 30 3RF levocetirizine [Xyzal] 5 mg tablet 5 mg PO DAILY 90 Days Qty: 90 1RF Percocet 7.5-325 mg tablet 1 tab PO Q6H PRN (Reason: pain) Qty: 10 0RF ondansetron 4 mg film 4 mg PO Q8H PRN (Reason: nausea and vomiting) Qty: 10 0RF Augmentin 875 mg PO BID Qty: 10 0RF Percocet 5-325 mg tablet 1 tab PO Q8H PRN (Reason: pain) Qty: 14 0RF Discharge Orders: Discharge ED (Routine); Ordered 04/07/23 Ordered By: Willem Xiong Referrals: Teagan Sahu STUMPER FELLER [Primary Care Provider] - Discharge Diet: Clear Liquid Discharge Activity: Increase activity as tolerated Patient Instructions: Gastritis (ED), Biliary Colic (ED), Diet for Stomach Ulcers and Gastritis (ED), Opioid Safety Activity Restrictions/Additional Instructions: Thank you for visiting the emergency department. You were seen evaluated for abdominal pain. The most likely cause of your symptoms is related to biliary colic and gastritis. This does not appear to need hospitalization at this time. I recommend continued outpatient management and follow-up with general surgery and primary care. I will prescribe additional doses of oxycodone, use this cautiously as it is an opioid. I will also prescribe additional doses of antinausea medication. Return to the emergency department for uncontrolled symptoms or anything else that you are concerned about and feel needs emergency department evaluation. Coding Level of Care Code ED Counselor/Art Therapist for Holli Martínez
[2023-04-07 03:08] VITALS: BP 153/63; RESP 16; O2SAT 98
[2023-04-07 03:20] LABS: Basophils # 0.1 10^3/uL (0.0-0.1); Basophils % 0.6 %; Eosinophils # 0.3 10^3/uL (0.0-0.8); Eosinophils % 2.6 %; Hematocrit 40.4 % (37.0-47.0); Hemoglobin 12.8 g/dL (11.5-15.3); Lymphocytes # 3.6 10^3/uL (0.8-4.8); Lymphocytes % 33.1 %; Mean Corpuscular HGB Conc 31.7 g/dL (30.0-36.0); Mean Corpuscular Hemoglobin 27.5 pg (28.0-34.0); Mean Corpuscular Volume 86.7 fl (81-99); Mean Platelet Volume 9.9 fL (7.4-10.4); Monocytes # 0.7 10^3/uL (0.2-0.9); Monocytes % 6.1 %; Neutrophils # 6.32 10^3/uL (1.8-7.7); Neutrophils % 57.4 %; Nucleated Red Blood Cells % 0 %; Platelet Count 323 10^3/cmm (130-400); Red Blood Count 4.66 10^6/uL (4.1-5.3); Red Cell Distribution Width 13.7 % (12.1-15.1)
[2023-04-07] MEDS: morphine 4 mg/mL SDV 1 mL IVP ×2 (03:21→04:43)
[2023-04-07] MEDS: pantoprazole 40 mg SDV 80 MG IVP (03:21)
[2023-04-07] MEDS: ondansetron 2 mg/ML SDV 2 mL 4 MG IVP (03:21)
[2023-04-07 03:31] LABS: Alanine Aminotransferase 19 U/L (0-33); Alkaline Phosphatase 67 U/L (35-105); Anion Gap 11.9 (5-19); Aspartate Amino Transferase 16 U/L (0-32); Blood Urea Nitrogen 18 mg/dL (6-20); Carbon Dioxide 25 mmol/L (22-29); Chloride 105 mmol/L (98-107); Globulin 2.2 g/dL (1.3-4.6); Glomerular Filtration Rate 74.6 mL/min (90-130); Glucose 103 mg/dL (65-115); Lipase 47 U/L (13-60); Osmolality Calculated 288 mOsm/kg (285-295); Potassium 3.9 mmol/L (3.5-5.1); Sodium 138 mmol/L (136-145); Total Bilirubin 0.2 mg/dL (0.15-1.2); Total Protein 6.2 g/dL (6.6-8.7)
--- NOTE | 2023-04-07 03:37 | USR_ITS ---
PROCEDURE INFORMATION: Exam: US Abdomen, Limited; Right Upper Quadrant Exam date and time: 04/07/2023 3:52 AM Age: 28 years old Clinical indication: Abdominal pain; Other: Ruq pain tonight; Patient HX: Morbid obesity, gerd, history of biliary colic, scheduled for lapchole on 04/09/2023. Normal tbili = 0.2, normal ast = 16, normal alt = 19, normal alkphos = 67, normal lipase = 47. Hcg has not been ordered at time of this exam. TECHNIQUE: Imaging protocol: Real time ultrasound of the abdomen with image documentation. Limited exam focused on the right upper quadrant. COMPARISON: US gall bladder [id number] 03/20/2023 6:43 PM FINDINGS: Liver: Normal. No masses. Gallbladder: Contracted gallbladder with cholelithiasis. Biliary ducts: Common bile duct measures 7 mm which is dilated. Pancreas: Visualized pancreas is unremarkable. Right kidney: Normal. No mass. No hydronephrosis. US/US gall bladder [id number] IMPRESSION: Contracted gallbladder with cholelithiasis and ductal dilatation. Findings are suggestive of gallbladder disease.
[2023-04-07 04:22] VITALS: BP 135/52; PULSE 56; RESP 16; O2SAT 97
[2023-04-07] MEDS: dicyclomine 10 mg Capsule PO (04:43)
[2023-04-07] MEDS: sucralfate 1 gm Tablet PO (04:43)
[2023-04-07] MEDS: aluminum-mag hydrox-simethicon 30 ML, sucralfate oral liq 1 GM PO (04:59)
[2023-04-07 05:22] VITALS: BP 119/48; PULSE 50; RESP 16; O2SAT 97
[2023-04-07 05:39] VITALS: BP 119/48; PULSE 50; RESP 16; TEMP 36.8; O2SAT 97
== END 2023-04-07 05:40 | disposition home or self-care (01) ==
PROVIDERS: Emergency Provider Emergency Medicine; PCP Nurse Practitioner Family
DX: K21.9 Gastro-esophageal reflux disease without esophagitis (principal); K29.70 Gastritis, unspecified, without bleeding; R10.84 Generalized abdominal pain
CPT/HCPCS: 76705; 80053; 83690; 85025; 96374; 96375; 96376; 99284; C9113; J2270; J2405

== ENCOUNTER 2023-04-23 15:14 | Emergency (ER) | payer MEDICARE, MEDICAID, SELFPAY ==
[2023-04-23 15:22] VITALS: BP 136/85; PULSE 82; RESP 15; TEMP 37.1; O2SAT 97; BMI 53.2
[2023-04-23 16:52] VITALS: BP 151/79; PULSE 71; RESP 16; O2SAT 97
[2023-04-23] MEDS: hyoscyamine ODT 0.125 mg Tablet PO ×2 (16:53→17:56)
--- NOTE | 2023-04-23 16:55 | ED_ITS ---
HPI - Abdominal Pain General: Chief Complaint: Abdominal Pain Stated Complaint: URQ abd pain Time Seen by Provider: 04/23/23 16:46 Source: patient Mode of arrival: ambulatory Limitations: no limitations History of Present Illness: This patient returns to the emergency department because of recurrent right upper quadrant abdominal pain. She states that she has not been able to eat or drink much because it exacerbates her pain symptoms. She denies any fevers. He does endorse occasional episodes of chills. She is has known cholelithiasis with gallbladder sludge and is scheduled for a elective cholecystectomy on the of this month. She denies any other current symptoms at this time. She s tates that she has had a bit of blood mixed with stool recently as well. She denies any syncope, lightheadedness, shortness of breath etc. MD elicited complaint: abdominal pain Pain Consistency: intermittent Location: RUQ Quality: cramping Exacerbating factors: eating Associated Symptoms: Reports chills, hematochezia and nausea; Denies dysuria, fever(s), hematemesis and melena Related Data: Date of Last Menstrual Period: 04/12/23 Review of Systems Const: Reports: chills; Denies: fever(s) or body aches Eyes: Denies: change in vision ENMT: Denies: throat pain or odynophagia Card: Denies: chest pain, palpitations or edema Resp: Denies: dyspnea or productive cough GI: Reports: abdominal pain, nausea and hematochezia; Denies: hematemesis, melena or white/light colored stool : Denies: flank pain, difficulty voiding, dysuria or urinary frequency Musc: Denies: neck pain, back pain, extremity pain or extremity swelling Skin/Breast: Denies: rash Neuro: Denies: headache(s), numbness in extremities or weakness in extremities PFSH ED PFSH: Medical History Chronic GERD Symptomatic cholelithiasis Surgical History History of tonsillectomy and adenoidectomy 04/26/12 Hx of section 04/201905/13/20 Family History Mother Cancer ovarian Heart attack Diabetes Father Diabetes COPD (chronic obstructive pulmonary disease) Cancer lung cancer Heart disease Grandmother Diabetes Gout Spastic colon Heart disease Cancer unknown what kind High cholesterol Mother Diabetes Pancreas (digestive gland) works poorly High cholesterol Social History Smoking and tobacco status: current every day smoker Female Reproductive History: Date of last menstrual period: 04/12/23 Physical Exam Narrative: EXAM NARRATIVE: She makes good eye contact speech is goal-directed. She does not appear to be in any acute distress and is a answers questions in a goal-directed fluent fashion. Const: COMMON NORMALS: no acute distress and patient oriented x3 GENERAL APPEARANCE: cooperative NUTRITIONAL APPEARANCE: overweight ORIENTATION/CONSCIOUSNESS: Yes awake HENMT: COMMON NORMALS: normocephalic, atraumatic, moist oral mucous membranes and oropharynx normal HEAD & SCALP: normocephalic and atraumatic TEETH & GINGIVA: Yes poor dentition Eye: COMMON NORMALS: Equal, round and reactive pupils present, conjunctivae normal and no scleral icterus CONJUNCTIVA: Yes conjunctivae normal PUPIL: Yes Equal, round and reactive pupils present Neck/C-Spine: COMMON NORMALS: full ROM, no lymphadenopathy, no JVD and No carotid bruits Chest: COMMONS NORMALS: normal inspection of the chest Resp: COMMON NORMALS: normal respiratory effort, No retractions, No use of accessory muscles and clear to auscultation bilaterally AUSCULTATION: clear to auscultation bilaterally Cardio: COMMON NORMALS: no JVD, regular rate, regular rhythm, No murmurs present (Cardio) and Peripheral pulses 2+ throughout RATE: regular rate RHYTHM: regular rhythm PERIPHERAL PULSES: Peripheral pulses 2+ throughout GI: COMMON NORMALS: Soft to palpation INSPECTION: Yes central obesity PALPATION: Yes Soft to palpation, Yes Tenderness to palpation present (GI) Details: RUQ and No Hernia present : COMMON NORMALS: Yes no CVA tenderness BLADDER/KIDNEY EXAM: Yes no CVA tenderness EXTERNAL FEMALE EXAM: No Hernia present Back/Pelvis: COMMON NORMALS: no CVA tenderness, thoracic and lumbar spine normal to inspection, no thoracic nor lumbar tenderness, thoraco-lumbar ROM no rmal and straight leg raise negative bilaterally Extremity: COMMON NORMALS: normal to inspection, full ROM, capillary refill normal, no calf tenderness and no pedal edema Neuro: COMMON NORMALS: patient oriented x3, moves all extremities, no focal motor deficits and no sensory deficits noted CRANIAL NERVES: Yes CN normal except as noted Psych: COMMON NORMALS: mental status grossly normal Skin: COMMON NORMALS: no rashes or lesions noted, no wounds and turgor normal GENERAL SKIN EXAM: no rashes or lesions noted and turgor normal Course Reevaluation(s): Reevaluation #1: Patient states she does feel some better after Levsin. Artery reviewed her labs with her. She has a normal white count, normal lipase, normal transaminases, normal bilirubin which mitigates against any likelihood of acute cholecystitis or other condition that would necessitate surgical consultation and urgent intervention. Discussed pain control with her and plan for continuing outpatient cholecystectomy with return precautions reviewed as well. Time: 17:47 Vital Signs: Vital signs: Vital Signs Temperature 98.8 F 04/23/23 15:22 Pulse Rate 71 04/23/23 16:52 Respiratory Rate 16 04/23/23 16:52 Blood Pressure 151/79 04/23/23 16:52 Pulse Oximetry 97 04/23/23 16:52 Oxygen Delivery Me thod Room Air, Nasal C annula 04/23/23 15:22 MDM - Abdominal Pain Medical Decision Making Patient with a known history of biliary colic and planned elective cholecyste ctomy returned because she was having intermittent and increasing pain particularly associated with eating. There is no history of fevers or other concerning change in her symptoms. Clinical examination revealed a abdomen with right upper quadrant tenderness to deep palpation but no peritoneal signs and no other concerning clinical findings. Laboratories were obtained which revealed normal white blood count, normal transaminases, normal bilirubin, normal alkaline phosphatase which mitigates against any need for urgent intervention at this time. Discussed expected course, pain control and return precautions with both she and accompanying friend. She was stable and appreciative of care. Medical Records I reviewed the patient's medical records. Prior surgical consultation and plans for elective cholecystectomy noted Lab Data I reviewed the patient's lab results. 04/23/23 17:11 04/23/23 17:11 Labs/Radiology: Laboratory Results WBC 10.8 10^3/uL (4.0-10.0) H 04/23/23 17:11 RBC 5.21 10^6/uL (4.1-5.3) 04/23/23 17:11 Hgb 14.3 g/dL (11.5-15.3) 04/23/23 17:11 Hct 44.1 % (37.0-47.0) 04/23/23 17:11 MCV 84.6 fl (81-99) 04/23/23 17:11 MCH 27.4 pg (28.0-34.0) L 04/23/23 17:11 MCHC 32.4 g/dL (30.0-36.0) 04/23/23 17:11 RDW 13.2 % (12.1-15.1) 04/23/23 17:11 Plt Count 300 10^3/cmm (130-400) 04/23/23 17:11 MPV 9.9 fL (7.4-10.4) 04/23/23 17:11 Neut % (Auto) 66.5 % 04/23/23 17:11 Lymph % (Auto) 25.4 % 04/23/23 17:11 [place] % (Auto) 4.8 % 04/23/23 17:11 Eos % (Auto) 2.5 % 04/23/23 17:11 Baso % (Auto) 0.6 % 04/23/23 17:11 Neut # (Auto) 7.18 10^3/uL (1.8-7.7) 04/23/23 17:11 Lymph # (Auto) 2.8 10^3/uL (0.8-4.8) 04/23/23 17:11 [place] # (Auto) 0.5 10^3/uL (0.2-0.9) 04/23/23 17:11 Eos # (Auto) 0.3 10^3/uL (0.0-0.8) 04/23/23 17:11 Baso # (Auto) 0.1 10^3/uL (0.0-0.1) 04/23/23 17:11 Nucleated RBC % (auto) 0 % 04/23/23 17:11 Nucleated RBCs # 0.0 /100WBC 04/23/23 17:11 Sodium 141 mmol/L (136-145) 04/23/23 17:11 Potassium 4.3 mmol/L (3.5-5.1) 04/23/23 17:11 Chloride 108 mmol/L (98-107) H 04/23/23 17:11 Carbon Dioxide 24 mmol/L (22-29) 04/23/23 17:11 Anion Gap 13.3 (5-19) 04/23/23 17:11 BUN 15 mg/dL (6-20) 04/23/23 17:11 Creatinine 0.7 mg/dL (0.5-0.9) 04/23/23 17:11 GFR Calculation 99.6 mL/min (90-130) 04/23/23 17:11 Glucose 88 mg/dL (65-115) 04/23/23 17:11 Calculated Osmolality 292 mOsm/kg (285-295) 04/23/23 17:11 Calcium 8.6 mg/dL (8.5-10.5) 04/23/23 17:11 Total Bilirubin 0.2 mg/dL (0.15-1.2) 04/23/23 17:11 AST 13 U/L (0-32) 04/23/23 17:11 ALT 13 U/L (0-33) 04/23/23 17:11 Alkaline Phosphatase 83 U/L (35-105) 04/23/23 17:11 Total Protein 6.4 g/dL (6.6-8.7) L 04/23/23 17:11 Albumin 3.9 g/dL (3.5-5.2) 04/23/23 17:11 Globulin 2.5 g/dL (1.3-4.6) 04/23/23 17:11 Lipase 39 U/L (13-60) 04/23/23 17:11 Discharge Plan Discharge Patient Disposition: Home Clinical Impression: Biliary colic Condition: Stable Prescriptions: New hyoscyamine sulfate [Levsin] 0.125 mg tablet 0.125 mg PO Q4H PRN (Reason: dyspepsia) Qty: 20 0RF hydrocodone-acetaminophen 5-325 mg tablet 1 tab PO Q6H PRN (Reason: pain) Qty: 10 0RF No Action pantoprazole [Protonix] 40 mg tablet,delayed release (DR/EC) 40 mg PO BID 42 Days Qty: 84 1RF buspirone 10 mg tablet 10 mg PO TID 30 Days Qty: 90 1RF fluoxetine 40 mg capsule 40 mg PO DAILY 30 Days Qty: 30 3RF prazosin 2 mg capsule 2 mg PO DAILY 30 Days Qty: 30 3RF levocetirizine [Xyzal] 5 mg tablet 5 mg PO DAILY 90 Days Qty: 90 1RF Percocet 7.5-325 mg tablet 1 tab PO Q6H PRN (Reason: pain) Qty: 10 0RF ondansetron 4 mg film 4 mg PO Q8H PRN (Reason: nausea and vomiting) Qty: 10 0RF Augmentin 875 mg PO BID Qty: 10 0RF Percocet 5-325 mg tablet 1 tab PO Q8H PRN (Reason: pain) Qty: 14 0RF ondansetron 4 mg tablet,disintegrating 4 mg PO Q8H PRN (Reason: nausea and vomiting) Qty: 15 0RF oxycodone 5 mg tablet 5 mg PO Q4H PRN (Reason: pain) Qty: 10 0RF Carafate 1 gram tablet 1 g PO TID 28 Days Qty: 84 0RF Discharge Orders: Discharge ED (Routine); Ordered 04/23/23 Ordered By: Tito Oliver Referrals: Teagan Sahu NP [Primary Care Provider] - Discharge Diet: Low Fat Discharge Activity: Increase activity as tolerated Patient Instructions: Abdominal Pain (ED), Opioid Safety, Pain Management Activity Restrictions/Additional Instructions: As we discussed your findings tonight did not suggest years of acute or immediate surgery and should follow-up with surgeon on the as planned. We have provided a prescription for medication to help control your symptoms. If you develop fevers increasing pain or other concerns return to this or the [facility] emergency department. Coding Level of Care Code ED Merchandise Appraiser for Holli Martínez
[2023-04-23 17:18] LABS: Basophils # 0.1 10^3/uL (0.0-0.1); Basophils % 0.6 %; Eosinophils # 0.3 10^3/uL (0.0-0.8); Eosinophils % 2.5 %; Hematocrit 44.1 % (37.0-47.0); Hemoglobin 14.3 g/dL (11.5-15.3); Lymphocytes # 2.8 10^3/uL (0.8-4.8); Lymphocytes % 25.4 %; Mean Corpuscular HGB Conc 32.4 g/dL (30.0-36.0); Mean Corpuscular Hemoglobin 27.4 pg (28.0-34.0); Mean Corpuscular Volume 84.6 fl (81-99); Mean Platelet Volume 9.9 fL (7.4-10.4); Monocytes # 0.5 10^3/uL (0.2-0.9); Monocytes % 4.8 %; Neutrophils # 7.18 10^3/uL (1.8-7.7); Neutrophils % 66.5 %; Nucleated Red Blood Cells % 0 %; Platelet Count 300 10^3/cmm (130-400); Red Blood Count 5.21 10^6/uL (4.1-5.3); Red Cell Distribution Width 13.2 % (12.1-15.1); White Blood Count 10.8 10^3/uL (4.0-10.0)
[2023-04-23 17:40] LABS: Alanine Aminotransferase 13 U/L (0-33); Albumin Level 3.9 g/dL (3.5-5.2); Alkaline Phosphatase 83 U/L (35-105); Anion Gap 13.3 (5-19); Aspartate Amino Transferase 13 U/L (0-32); Blood Urea Nitrogen 15 mg/dL (6-20); Calcium 8.6 mg/dL (8.5-10.5); Carbon Dioxide 24 mmol/L (22-29); Chloride 108 mmol/L (98-107); Globulin 2.5 g/dL (1.3-4.6); Glomerular Filtration Rate 99.6 mL/min (90-130); Glucose 88 mg/dL (65-115); Lipase 39 U/L (13-60); Osmolality Calculated 292 mOsm/kg (285-295); Potassium 4.3 mmol/L (3.5-5.1); Sodium 141 mmol/L (136-145); Total Bilirubin 0.2 mg/dL (0.15-1.2); Total Protein 6.4 g/dL (6.6-8.7)
[2023-04-23] MEDS: HYDROcodone-acetaminophen 7.5-325 mg Tablet 1 TAB PO (17:55)
[2023-04-23 17:57] VITALS: BP 137/73; PULSE 60; RESP 16; O2SAT 98
== END 2023-04-23 17:59 | disposition home or self-care (01) ==
PROVIDERS: Emergency Provider Emergency Medicine; PCP Nurse Practitioner Family
DX: K80.50 Calculus of bile duct without cholangitis or cholecystitis without obstruction (principal); F17.210 Nicotine dependence, cigarettes, uncomplicated
CPT/HCPCS: 80053; 83690; 85025; 99283

== ENCOUNTER 2023-04-27 06:10 | Day surgery (SDC) | payer MEDICARE, MEDICAID, SELFPAY ==
[2023-04-25 12:16] VITALS: BMI 53.2
[2023-04-27 06:28] VITALS: BP 157/84; PULSE 71; RESP 18; TEMP 36.1; O2SAT 98
[2023-04-27] MEDS: sodium chloride 0.9% 1,000 ML 30 ML IV (06:46)
[2023-04-27 07:03] VITALS: PULSE 66; RESP 16; O2SAT 99
[2023-04-27 07:04] LABS: OR HCG Qualitative Urine Negative (Negative)
--- NOTE | 2023-04-27 07:06 | P.ANESASSM_ITS ---
Pre-Anesthetic Assessment Height/Weight: Height 1.57 m Weight 131.995 kg Temp Pulse Resp BP Pulse Ox O2 Del Method 96.9 F L 66 16 157/84 99 Room Air 04/27/23 06:28 04/27/23 07:03 04/27/23 07:03 04/27/23 06:28 04/27/23 07:03 04/27/23 07:03 Preop Diagnosis: GERD Operation Date: 04/27/23 07:15 Proposed Procedures p 01354 egd K21.9,K92.0(Not Applicable) - Carmelo Francois, DO Was Beta Lucero taken within 24 hours: N/A Was Clonidine taken within 24 hours: N/A Last intake: Intake Last Liquid Date 04/26/23 Last Liquid Time 21:00 Last Solid Date 04/26/23 Last Solid Time 21:00 Last Intake: 23:30 Social Tobacco and No alcohol 1ppd pack(s) per day 10+ pack years Exam alert, oriented x 3, clear to auscultation bilaterally (after treatment) and regular rate & rhythm Airway Submandibular: within normal limits Cervical ROM: within normal limits Mallampati: Class II Dentition: false (upper) Pulmonary Asthma, Cough and Exertional Dyspnea CV/HEM None reported None reported Hepatic None reported GI Gastroesophageal Reflux Disease (controlled) Metabolic Morbid Ob[place] [facility] [place] None reported Neuropsych Anxiety, Depression and Headache Anesthetic Plan ASA status: 3 Anesthesia: MAC Risk of > 500 ml blood loss (7ml/kg in children): No Medications/Allergies Home Medications Medication Instructions Recorded Confirmed Last Taken Type buspirone 10 mg tablet 10 mg PO TID 30 days #90 tabs 03/10/23 04/25/23 04/26/23 Rx fluoxetine 40 mg capsule 40 mg PO DAILY 30 days #30 caps 03/10/23 04/25/23 04/26/23 Rx prazosin 2 mg capsule 2 mg PO DAILY 30 days #30 caps 03/10/23 04/25/23 04/26/23 Rx pantoprazole 40 mg tablet,delayed 40 mg PO BID 6 weeks #84 tabs 04/05/23 04/25/23 04/26/23 Rx release (Protonix) ondansetron 4 mg disintegrating 4 mg PO Q8H PRN nausea and 04/07/23 04/25/23 04/25/23 Rx tablet vomiting #15 tabs sucralfate 1 gram tablet (Carafate) 1 g PO TID 4 weeks #84 tabs 04/07/23 04/25/23 04/26/23 Rx hydrocodone 5 mg-acetaminophen 325 1 tab PO Q6H PRN pain #10 tabs 04/23/23 04/25/23 04/26/23 Rx mg tablet hyoscyamine sulfate 0.125 mg 0.125 mg PO Q4H PRN dyspepsia #20 04/23/23 04/25/23 04/25/23 Rx tablet (Levsin) tabs Allergies Allergy/AdvReac Type Severity Reaction Status Date / Time codeine Allergy Unknown Verified 04/25/23 12:05 Sulfa (Sulfonamide Allergy Unknown Verified 04/25/23 12:05 Antibiotics) Current Medications Generic Name Dose Route Start Last Admin Trade Name Freq PRN Reason Stop Dose Admin Sodium Chloride 1,000 mls @ 30 mls/hr 04/27/23 06:30 04/27/23 06:46 Sodium Chloride 0.9% IV 04/28/23 06:29 30 mls/hr .Q24H PAM Administration PFSH Anesthesia Medical History Chronic GERD Symptomatic cholelithiasis Surgical History History of tonsillectomy and adenoidectomy 04/26/12 Hx of section 04/201905/13/20 Family History Mother Cancer ovarian Heart attack Diabetes Father Diabetes COPD (chronic obstructive pulmonary disease) Cancer lung cancer Heart disease Grandmother Diabetes Gout Spastic colon Heart disease Cancer unknown what kind High cholesterol Mother Diabetes Pancreas (digestive gland) works poorly High cholesterol Social History Smoking and tobacco status: current every day smoker Female Reproductive History Date of last menstrual period: 04/12/23 Data Anesthesia Cardiac Studies: No Data to Display
--- NOTE | 2023-04-27 07:20 | W.PM.OPSUD ---
Surgery/Procedure H&P Update DATE OF PROCEDURE: April 27, 2023 DATE H&P PERFORMED: 04/05/23 H&P UPDATE INFORMATION: I have reviewed H&P completed within last 30 days, I have examined patient prior to procedure and No changes to prior documentation PREOP DIAGNOSIS: GERD PLANNED PROCEDURE: Operation Date: 04/27/23 07:15 Proposed Procedures p [id number] egd K21.9,K92.0(Not Applicable) - Carmelo Francois DO
[2023-04-27 07:36] VITALS: BP 135/62; PULSE 72; RESP 16; TEMP 36.2; O2SAT 96
[2023-04-27 07:46] VITALS: BP 121/70; PULSE 69; RESP 18; O2SAT 99
[2023-04-27 07:53] VITALS: BP 130/78; PULSE 67; RESP 18; O2SAT 99
--- NOTE | 2023-04-27 14:30 | ANE.PACU2 ---
Inpatient post-anesthesia follow up: Airway intact: Yes Vital signs: Temperature 97.1 F Pulse Rate 67 Respiratory Rate 18 Blood Pressure 130/78 Pulse Oximetry 99 Oxygen Delivery Me thod Room Air Oxygen Flow Rate 3 Fraction of Inspir ed Oxygen Hydration adequate: Yes Nausea and vomiting: No Pain level: 2 Mental status: Baseline
== END 2023-04-27 08:08 | disposition home or self-care (01) ==
PROVIDERS: Anesthesiology; PCP Nurse Practitioner Family; Visit Provider Surgery
PROC: 0DJ08ZZ Inspection of Upper Intestinal Tract, Via Natural or Artificial Opening Endoscopic (ICD-10-PCS; CPT 43235; principal; 2023-04-27 07:15)
DX: K21.9 Gastro-esophageal reflux disease without esophagitis (principal)
CPT/HCPCS: 43239; 81025; 84703; 88305; 94640; J2704; J7030

== ENCOUNTER 2023-04-28 05:43 | Day surgery (SDC) | payer MEDICARE, MEDICAID, SELFPAY ==
[2023-04-27 13:48] VITALS: BMI 53.2
[2023-04-28] VITALS (11 sets, daily range): BP systolic 126–161; BP diastolic 69–126; PULSE 67–90; RESP 12–22; TEMP 36.3–36.5; O2SAT 96–100
[2023-04-28 06:24] LABS: Glucose Point of Care 99 mg/dL (70-110)
[2023-04-28 06:24] LABS: OR HCG Qualitative Urine Negative (Negative)
[2023-04-28] MEDS: sodium chloride 0.9% 1,000 ML 30 ML IV (06:29)
--- NOTE | 2023-04-28 07:00 | W.PM.OPSUD ---
Surgery/Procedure H&P Update DATE OF PROCEDURE: April 28, 2023 DATE H&P PERFORMED: 04/05/23 H&P UPDATE INFORMATION: I have reviewed H&P completed within last 30 days, I have examined patient prior to procedure and No changes to prior documentation PLANNED PROCEDURE: Operation Date: 04/28/23 07:00 Proposed Procedures p 46140 lap ashlie K80.2(Not Applicable) - Carmelo Francois DO
[2023-04-28] MEDS: ceFAZolin 2,000 MG in sodium chloride 0.9% (plus) 50 ML 100 MG IV (07:02)
[2023-04-28] MEDS: lidocaine-epi 2% 20 mL INJ INJECTION (07:52)
--- NOTE | 2023-04-28 08:01 | P.OP_ITS ---
Operative Report Date of procedure: April 28, 2023 Pre-op diagnosis: Symptomatic cholelithiasis Post-op diagnosis: same Procedure done: Laparoscopic cholecystectomy Specimens removed/disposition: Gallbladder Surgeon: Dr. Carmelo Francois DO Anesthesia: General Estimated blood loss (mL): 5 Complications: None apparent Brief History: This very pleasant 28-year-old female with symptomatic cholelithiasis. Laparoscopic cholecystectomy is indicated. The risks and benefits were explained and documented. Procedure: Patient was wheeled into the operative room and placed on the OR table in a supine position. Abdomen was inspected prepped and draped in usual sterile fashion. Time-out was performed and all present were in agreement. A 15 blade scalp was used to make a stab incision in the left upper quadrant and intra- abdominal insufflation was achieved using a Veress needle. After localizing the tissue incisions were made and a 5 millimeter trocar was placed into the umbilicus as well as 2 in the right upper quadrant. A 12 millimeter trocar was placed in the epigastrium. Gallbladder was grasped and elevated. The gallbladder was covered and dense adhesions and densely adhered to the stomach. The stomach was peeled off. The triangle of Calot was carefully dissected using blunt dissection and electrocautery until the triangle of Calot clearly identified. The cystic duct was clipped proximally and double clipped distally. The duct was then ligated proximally. The cystic artery was doubly clipped and ligated. The gallbladder was then removed from the liver bed using electrocautery. The gallbladder was inadvertently opened and a very large stone was the entire contents of the gallbladder. The gallbladder was removed from the abdomen using an Endo-Catch bag through the epigastric incision. The liver bed was inspected and no bleeding was seen. The abdomen was irrigated and suctioned. All ports removed. Skin was washed and dried. Incisions were closed with 4-0 Monocryl in a subcuticular interrupted fashion. Skin glue was applied. Patient tolerated the procedure well.
--- NOTE | 2023-04-28 08:16 | ANES.PREANE2 ---
Pre-Anesthetic Assessment Height/Weight: Height 1.57 m Weight 131.995 kg Temp Pulse Resp BP Pulse Ox O2 Del Method 97.7 F 71 18 134/69 96 Room Air 04/28/23 06:07 04/28/23 06:07 04/28/23 06:07 04/28/23 06:07 04/28/23 06:07 04/28/23 06:12 Operation Date: 04/28/23 07:00 Proposed Procedures p [id number] lap ashlie K80.2(Not Applicable) - Carmelo Francois DO Familial anesthetic complications: none Was Beta Lucero taken within 24 hours: N/A Was Clonidine taken within 24 hours: N/A Last intake: Intake Last Liquid Date 04/27/23 Last Liquid Time 23:45 Last Solid Date 04/27/23 Last Solid Time 21:00 Social Tobacco and No alcohol Exam alert, oriented x 3 and regular rate & rhythm Airway Submandibular: within normal limits Cervical ROM: within normal limits Mallampati: Class II Dentition: chipped (very poor dentition) GI Gastroesophageal Reflux Disease Metabolic Morbid Obesity Neuropsych Anxiety and Depression Anesthetic Plan ASA status: 3 Anesthesia: General Medications/Allergies Home Medications Medication Instructions Recorded Confirmed Last Taken Type buspirone 10 mg tablet 10 mg PO TID 30 days #90 tabs 03/10/23 04/27/23 04/27/23 Rx fluoxetine 40 mg capsule 40 mg PO DAILY 30 days #30 caps 03/10/23 04/27/23 04/27/23 Rx prazosin 2 mg capsule 2 mg PO DAILY 30 days #30 caps 03/10/23 04/27/23 04/27/23 Rx pantoprazole 40 mg tablet,delayed 40 mg PO BID 6 weeks #84 tabs 04/05/23 04/27/23 04/27/23 Rx release (Protonix) ondansetron 4 mg disintegrating 4 mg PO Q8H PRN nausea and 04/07/23 04/27/23 04/27/23 Rx tablet vomiting #15 tabs hyoscyamine sulfate 0.125 mg 0.125 mg PO Q4H PRN dyspepsia #20 04/23/23 04/27/23 04/27/23 Rx tablet (Levsin) tabs amoxicillin 875 mg-potassium 1 tab PO BID #14 tabs 04/28/23 Unknown Rx clavulanate 125 mg tablet docusate sodium 100 mg capsule 100 mg PO BID #14 caps 04/28/23 Unknown Rx (Colace) hydrocodone 10 mg-acetaminophen 1 tab PO Q6H PRN pain #20 tabs 04/28/23 Unknown Rx 325 mg tablet Allergies Allergy/AdvReac Type Severity Reaction Status Date / Time codeine Allergy Unknown Verified 04/27/23 13:42 Sulfa (Sulfonamide Allergy Unknown Verified 04/27/23 13:42 Antibiotics) Current Medications Generic Name Dose Route Start Last Admin Trade Name Freq PRN Reason Stop Dose Admin Sodium Chloride 1,000 mls @ 30 mls/hr 04/28/23 06:00 04/28/23 06:29 Sodium Chloride 0.9% IV 04/29/23 05:59 30 mls/hr .Q24H PAM Administration PFSH Anesthesia Medical History Chronic GERD Symptomatic cholelithiasis Surgical History History of tonsillectomy and adenoidectomy 04/26/12 Hx of section 04/201905/13/20 Family History Mother Cancer ovarian Heart attack Diabetes Father Diabetes COPD (chronic obstructive pulmonary disease) Cancer lung cancer Heart disease Grandmother Diabetes Gout Spastic colon Heart disease Cancer unknown what kind High cholesterol Mother Diabetes Pancreas (digestive gland) works poorly High cholesterol Social History Smoking and tobacco status: current every day smoker Data Anesthesia Cardiac Studies: No Data to Display
[2023-04-28] MEDS: ondansetron 2 mg/ML SDV 2 mL 4 MG IVP (08:19)
[2023-04-28] MEDS: fentaNYL 50 mcg/mL INJ 2mL IVP ×2 (08:26→08:36)
[2023-04-28] MEDS: diphenhydrAMINE 50 mg/mL SDV 1mL 12.5 MG IVP (08:31)
[2023-04-28] MEDS: HYDROcodone-acetaminophen 10-325 mg Tablet 1 TAB PO (09:15)
--- NOTE | 2023-04-28 13:40 | ANE.PACU2 ---
Inpatient post-anesthesia follow up: Airway intact: Yes Vital signs: Temperature 97.4 F Pulse Rate 76 Respiratory Rate 18 Blood Pressure 139/90 Pulse Oximetry 100 Oxygen Delivery Me thod Room Air Oxygen Flow Rate Fraction of Inspir ed Oxygen Hydration adequate: Yes Nausea and vomiting: No Pain level: 3 Mental status: Baseline
== END 2023-04-28 09:29 | disposition home or self-care (01) ==
PROVIDERS: Anesthesiology; PCP Nurse Practitioner Family; Visit Provider Surgery
PROC: 0FT44ZZ Resection of Gallbladder, Percutaneous Endoscopic Approach (ICD-10-PCS; CPT 47562; principal; 2023-04-28 07:00)
DX: K80.10 Calculus of gallbladder with chronic cholecystitis without obstruction (principal); K21.9 Gastro-esophageal reflux disease without esophagitis; E66.01 Morbid (severe) obesity due to excess calories; Z68.43 Body mass index [BMI] 50.0-59.9, adult; F17.200 Nicotine dependence, unspecified, uncomplicated
CPT/HCPCS: 47562; 36416; 81025; 82962; 84703; 88304; J0690; J1100; J1170; J1200; J2250; J2371; J2405; J2704; J2710; J3010; J3490; J7030

== ENCOUNTER 2023-04-30 18:24 | Emergency (ER) | payer MEDICARE, MEDICAID, SELFPAY ==
[2023-04-30 18:31] VITALS: BP 140/81; PULSE 90; RESP 18; TEMP 36.7; O2SAT 98; BMI 53.2
--- NOTE | 2023-04-30 19:47 | CTR_ITS ---
PROCEDURE INFORMATION: Exam: CT Abdomen And Pelvis With Contrast Exam date and time: 04/30/2023 8:03 PM Age: 28 years old Clinical indication: Abdominal pain; Localized; Right upper quadrant (ruq); Prior surgery; Surgery date: 3-7 days post-operative; Surgery type: Lap ashlie three days ago. Cesction x 2; Patient HX: C/O ruq pain with bleeding from incision site. ; Additional info: Abd pain, post op 72 hrs from ashlie. States fell on abd , pain, TECHNIQUE: Imaging protocol: Computed tomography of the abdomen and pelvis with contrast. Axial, coronal and sagittal reformatted images were created and reviewed. Radiation optimization: All CT scans at this facility use at least one of these dose optimization techniques: automated exposure control; mA and/or kV adjustment per patient size (includes targeted exams where dose is matched to clinical indication); or iterative reconstruction. Contrast material: OMNI 350; Contrast volume: 100 ml; Contrast route: INTRAVENOUS (IV); REPORTING DATA: Count of CT and Cardiac NM exams in prior 12 months: This patient has received 0 known CTs and 0 known cardiac nuclear medicine studies in the 12 months prior to the current study. COMPARISON: US gall bladder [id number] 04/07/2023 3:52 AM RADIATION DOSE METRICS: Total DLP (mGy-cm): 1208.02 FINDINGS: Liver: Unremarkable. Gallbladder and bile ducts: Postoperative changes associated with recent cholecystectomy. Small amount of loculated fluid, gas and edema in the gallbladder fossa, likely postoperative in nature. Pancreas: Unremarkable. Spleen: Unremarkable. Adrenal glands: Normal. No mass. Kidneys and ureters: 7 mm low-density right renal lesion, too small to characterize. No radiodense calculi. No hydronephrosis. Stomach and bowel: Moderate amount of retained stool in the colon. No obstruction. No bowel wall thickening. No pneumatosis. Appendix: Normal. Intraperitoneal space: No free fluid. No organized fluid collection. No free air. Vasculature: Unremarkable. No aneurysm. Lymph nodes: No pathologically enlarged lymph nodes. Urinary bladder: Unremarkable as visualized. Reproductive: Unremarkable. Bones/joints: No acute osseous abnormality. Mild degenerative changes. Soft tissues: Small, fat containing umbilical hernia. Postoperative changes in the anterior abdominal wall. No organized collection or soft tissue mass. CT/CT abdomen pelvis w con* [id number] IMPRESSION: 1. Postoperative changes associated with recent cholecystectomy. Small amount of loculated fluid, gas and edema in the gallbladder fossa, likely postoperative in nature. Follow-up to resolution is recommended. If there is clinical concern for bile leak, HIDA scan would provide a more sensitive evaluation. 2. Additional findings, as above. COMMENTS: Consistent with the [employer]'s Incidental Findings Committee white paper (J Am Rodo Radiol 2018): Any incidental renal lesion less than 1 cm or classified as too small to characterize, or any incidental cystic renal lesion characterized as simple-appearing, is likely benign. No follow-up imaging is recommended for these lesions per consensus recommendations based on imaging criteria.
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
[2023-04-30 19:58] VITALS: BP 117/68; PULSE 99; RESP 17; O2SAT 98
[2023-04-30] MEDS: iohexol 350 mg/mL 500 mL Btl (per mL) IV (20:04)
[2023-04-30 20:07] LABS: Basophils # 0.1 10^3/uL (0.0-0.1); Basophils % 0.7 %; Eosinophils # 0.3 10^3/uL (0.0-0.8); Eosinophils % 1.9 %; Hematocrit 40.5 % (37.0-47.0); Hemoglobin 13.4 g/dL (11.5-15.3); Lymphocytes # 2.9 10^3/uL (0.8-4.8); Lymphocytes % 18.9 %; Mean Corpuscular HGB Conc 33.1 g/dL (30.0-36.0); Mean Corpuscular Hemoglobin 27.7 pg (28.0-34.0); Mean Corpuscular Volume 83.7 fl (81-99); Mean Platelet Volume 9.7 fL (7.4-10.4); Monocytes # 0.9 10^3/uL (0.2-0.9); Monocytes % 5.6 %; Neutrophils # 10.96 10^3/uL (1.8-7.7); Neutrophils % 72.5 %; Nucleated Red Blood Cells % 0 %; Platelet Count 338 10^3/cmm (130-400); Red Blood Count 4.84 10^6/uL (4.1-5.3); Red Cell Distribution Width 13.2 % (12.1-15.1); White Blood Count 15.1 10^3/uL (4.0-10.0)
[2023-04-30 20:18] LABS: Alanine Aminotransferase 28 U/L (0-33); Albumin Level 3.7 g/dL (3.5-5.2); Alkaline Phosphatase 78 U/L (35-105); Anion Gap 14.1 (5-19); Aspartate Amino Transferase 16 U/L (0-32); Blood Urea Nitrogen 14 mg/dL (6-20); Calcium 8.6 mg/dL (8.5-10.5); Carbon Dioxide 25 mmol/L (22-29); Chloride 105 mmol/L (98-107); Globulin 2.8 g/dL (1.3-4.6); Glucose 91 mg/dL (65-115); Osmolality Calculated 290 mOsm/kg (285-295); Potassium 4.1 mmol/L (3.5-5.1); Sodium 140 mmol/L (136-145); Total Bilirubin 0.2 mg/dL (0.15-1.2); Total Protein 6.5 g/dL (6.6-8.7)
[2023-04-30] MEDS: ondansetron 2 mg/ML SDV 2 mL 4 MG IVP (20:21)
[2023-04-30 20:22] VITALS: RESP 16
[2023-04-30] MEDS: morphine 4 mg/mL SDV 1 mL IVP (20:22)
[2023-04-30 21:49] VITALS: BP 112/64; PULSE 64; RESP 16; O2SAT 98
== END 2023-04-30 21:52 | disposition home or self-care (01) ==
PROVIDERS: Emergency Provider Physician Assistant; PCP Nurse Practitioner Family
DX: G89.18 Other acute postprocedural pain (principal); Z90.49 Acquired absence of other specified parts of digestive tract; F17.210 Nicotine dependence, cigarettes, uncomplicated
CPT/HCPCS: 74177; 80053; 85025; 96374; 96375; 99285; J2270; J2405; Q9967